=== PATIENT | female | born 1940 | race Caucasian/White ===

== ENCOUNTER 2021-08-15 18:19 | Emergency (ER) | payer MEDICARE, OTHER ==
[~2021-08-15] VITALS: Ht 152.4 cm; Wt 55.0 kg
[~2021-08-15 18:19] MED LIST: 00186-0370-20 IH; ASPIRIN E.C. 8181 MG PO; CLINDAMYCIN HC300 MG PO; FLEXERIL 1010 MG/TAB; LASIX20 MG PO; MAG-G500 MG PO; MULTI-DAY PLUS1 TA1 PO; NEXIUM 40MG40 MG PEG; NORVASC2.5 MG PO; PROAIR HFA0.09 MG/AC IH; SUPER EPA 1201200 MG PO; ZETIA 10MG TAB10 MG PO; ZITHROMAX500 M2 PO; ZYRTEC 10MG10 MG PO
[2021-08-15 18:38] VITALS: TEMP 98.3
[2021-08-15] MEDS ORDERED: NORCO 325 MG-51 TAB PO (19:53)
[2021-08-15 19:59] VITALS: BP 162/106; PULSE 100
== END 2021-08-15 20:08 | disposition home or self-care (01) ==
LOC: COL.ER 18:19
DX: M25.512 Pain in left shoulder (principal); Z98.890 Other specified postprocedural states